=== PATIENT | female | born 1985 | race Asian ===

== ENCOUNTER 2020-01-14 17:36 | Emergency (ER) | payer BC, SELFPAY ==
--- NOTE | ~2020-01-14 | US_ITS ---
EXAMINATION: US OB <=14 wk fetus w TV EXAM DATE: 01/14/2020 18:36 INDICATION: , left-sided abdominal pain, cramping. 1st trimester. TECHNIQUE: Pelvic obstetrical transabdominal sonogram was performed by a technologist. There are mu ltiple grayscale and Doppler images available for interpretation. There are no earlier studies of th is gestation for comparison. FINDINGS: Uterus measures 8.7 x 4.6 x 3.7 cm. The endometrium is 17 mm in thickness, upper limits of normal, without gestation sac identified within the bladder. Small to moderate free pelvic fluid. Right adnexa: The ovary measures 3.0 x 2.5 x 1.7 cm and is morphologically normal. Ovarian vascular f low confirmed. Left adnexa: The ovary measures 3.7 x 3.9 x 3.9 cm, with mildly complex cystic lesion measuring 2.5 c m without surrounding hypervascularity, appearance most consistent with small hemorrhagic cyst. Ovari an vascular flow confirmed. Early intrauterine or recent spontaneous are common causes of elevated beta hCG in absence of intrauterine confirmation. Ultrasound can sometimes identify, but never exclud e an ectopic in the setting of positive beta hCG. Follow up as warranted clinically with s erial beta hCG levels or ultrasound. IMPRESSION: 1. Left ovarian small cystic lesion most likely hemorrhagic cyst. 2. No identified. Follow up as indicated clinically. Reviewed, dictated and finalized at location A.
[2020-01-14 17:39] VITALS: BP 123/60; PULSE 79; RESP 18; TEMP 36.4; O2SAT 99
[2020-01-14] MEDS: SODIUM CHLORIDE 0.9% IV 1,000 ML 999 ML IV CONT (18:00)
[2020-01-14] MEDS: MORPHINE SULFATE 4 MG/ML INJ IV PUSH (18:06)
--- NOTE | 2020-01-14 18:08 | ED.FEMALEGU ---
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 Patient is with an LMP of 11/26/2019. Patient reports sudden onset pain this evening. She has had no vaginal bleeding. G2, P1. Has not had a dating ultrasound. She sees Dr. Esparza. She has not been on any hormones to stimulate . Patient reports she tried to have a bowel movement and felt pressure in her rectum. Related Data Home Medications Medication Instructions Recorded Confirmed No Home Medications 01/14/20 01/14/20 Allergies Allergy/AdvReac Type Severity Reaction Status Date / Time No Known Allergies Allergy Verified 01/14/20 17:43 Review of Systems Review of Systems: All systems reviewed & are unremarkable except as noted in HPI and below Gastrointestinal: Gastrointestinal: Reports abdominal pain, Denies nausea and Denies vomiting Genitourinary: Genitourinary: Denies nocturia, Denies dysuria, Reports pelvic pain and Denies urinary incontinence PMFSH Past Medical History Medical History (Updated 01/14/20 @ 19:36 by Rome Arreguin MD) Healthy female adult Surgical History Surgical History (Updated 01/14/20 @ 18:10 by Rome Arreguin MD) H/O section Social History Social History (Updated 01/14/20 @ 18:10 by Rome Arreguin MD) Smoking status: Never smoker Gender identity (if verbalized by the patient): Female Exam Narrative: Exam Narrative: GENERAL: Well-appearing, well-nourished, and in no acute distress. HEAD: Normocephalic, atraumatic. ENT: Mucous membranes moist. CHEST: Clear to auscultation. No respiratory distress. HEART: Regular rate and rhythm. Normal peripheral pulses. ABDOMEN: Soft, mild left adnexal tenderness, nondistended. Pelvic: Normal external genitalia, scant discharge in the vaginal vault, cervix closed without bleeding. EXTREMITIES: Normal range of motion. No edema. SKIN: Warm, dry, no rash. NEURO: Alert and oriented x3. PSYCH: Normal mood and affect. Course Course Emergency Course: Discussed case with Dr. curry. Patient informed of results. Needs to contact clinic tomorrow for close follow-up and repeat beta-hCG testing. Vital Signs Vital signs: Vital Signs Temperature 97.5 F L 01/14/20 17:39 Pulse Rate 79 01/14/20 17:39 Respiratory Rate 18 01/14/20 17:39 Blood Pressure 123/60 01/14/20 17:39 Pulse Oximetry 99 01/14/20 17:39 Temperature 97.5 F L 01/14/20 18:36 Pulse Rate 79 01/14/20 17:39 Respiratory Rate 18 01/14/20 17:39 Blood Pressure 123/60 01/14/20 17:39 Pulse Oximetry 99 01/14/20 17:39 MDM - Female Genitourinary Lab Data Result diagrams: 01/14/20 18:00 Labs: Lab Results 01/14/20 01/14/20 01/14/20 Range/Units 18:00 18:00 18:35 Sodium 135 L (137-145) mmol/L Potassium 3.8 (3.4-5.0) mmol/L Chloride 101 (98-107) mmol/L Carbon Dioxide 24 (22-30) mmol/L BUN 11 (7-17) mg/dL Creatinine 0.60 L (0.7-1.0) mg/dL Estim Creat Clear Calc 110 ml/min Estimated GFR > 60 (59 - ) Glucose 94 (65-105) mg/dL Calcium 9.0 (8.4-10.2) mg/dL Beta HCG, Quant 902.97 mIU/ML Urine Color Straw (Yellow) Urine Appearance Clear (Clear) Urine pH 6.0 (5.0-9.0) Ur Specific [place] 1.014 (1.001-1.035) Urine Protein Negative (Negative) mg/dL Urine Glucose (UA) Negative (Negative) mg/dL Urine Ketones Negative (Negative) mg/dL Ur Blood (Man) Negative (Negative) Urine Nitrate Negative (Negative) Urine Bilirubin Negative (Negative) Urine Urobilinogen Negative (<2.0) mg/dL Leukocyte Esterase Rfl Negative (Negative) JOHN/UL Blood Type A Positive Antibody Screen Negative Screen Not Reportable Baby's B
[2020-01-14 18:18] LABS: Blood Urea Nitrogen 11 mg/dL (7-17); Carbon Dioxide 24 mmol/L (22-30); Chloride 101 mmol/L (98-107); Estimated CRCL calculation 110 ml/min; Estimated Glomerular Filt Rate > 60; Glucose 94 mg/dL (65-105); Potassium 3.8 mmol/L (3.4-5.0); Sodium 135 mmol/L (137-145)
[2020-01-14 18:36] VITALS: TEMP 36.4
[2020-01-14 18:49] LABS: Add Urine Microscopic? NO; Appearance Urine Clear (Clear); Bilirubin Urine Negative (Negative); Blood Urine Negative (Negative); Color Urine Straw (Yellow); Glucose Urine UA Negative (Negative); Ketones Urine Negative (Negative); Leukocyte Esterase Ur Negative LEU/UL (Negative); Nitrate Urine Negative (Negative); Protein Urine Negative (Negative); Specific Grav Ur 1.014 (1.001-1.035); Urobilinogen Urine Negative mg/dL (<2.0)
[2020-01-14 19:48] VITALS: BP 131/68; PULSE 77; RESP 16; TEMP 36.7; O2SAT 100
== END 2020-01-14 19:50 | disposition home or self-care (01) ==
PROVIDERS: Emergency Provider Emergency Medicine; PCP Family Medicine
DX: O34.81 Maternal care for other abnormalities of pelvic organs, first trimester (principal); N83.202 Unspecified ovarian cyst, left side; Z3A.01 Less than 8 weeks gestation of pregnancy
CPT/HCPCS: 36415; 76801; 76817; 80048; 81003; 84702; 85461; 96361; 96374; 99284; J2270; J7030

== ENCOUNTER 2020-01-15 10:17 | Outpatient (CLI) | payer BC, SELFPAY ==
[2020-01-15 10:47] LABS: Basophils Percent Auto 0.4 % (0.2-1.2); Eosinophils Absolute Auto 0.1 K/mm3 (0-0.3); Eosinophils Percent Auto 1.4 % (0-4.4); Hematocrit 31.1 % (37.0-47.0); Hemoglobin 10.3 g/dL (12.0-15.0); Immature Granulocyte Absolute 0.03 K/mm3 (0.00-0.031); Immature Granulocyte Percent A 0.3 % (0-0.5); Lymphocytes Absolute Auto 2.86 K/mm3 (0.9-3.2); Lymphocytes Percent Auto 30.2 % (18.3-44.2); Mean Corpuscular HGB Conc 33.1 g/dl (32-36); Mean Corpuscular Hemoglobin 27.4 pg (26-34); Mean Corpuscular Volume 82.7 fl (80-100); Mean Platelet Volume 10.7 fl (7.4-10.4); Monocytes Absolute Auto 0.8 K/mm3 (0.1-0.6); Monocytes Percent Auto 8.2 % (2.6-8.5); Neutrophils Absolute Auto 5.6 K/mm3 (1.3-6.7); Neutrophils Percent Auto 59.5 % (45.5-73.1); Platelet Count Result 250 k/mm3 (150-375); Red Blood Count 3.76 M/mm3 (4.2-5.4); Red Cell Distribution Width 19.9 % (11.5-14.5); White Blood Count 9.5 K/mm3 (4.5-10.0)
[2020-01-18 04:52] LABS: Progesterone 3.6 ng/mL (***)
== END 2020-01-15 10:18 | disposition home or self-care (01) ==
LOC: ANHLAB 10:20
PROVIDERS: PCP Family Medicine; Visit Provider Obstetrics & Gynecology
DX: O20.9 Hemorrhage in early pregnancy, unspecified (principal); Z3A.00 Weeks of gestation of pregnancy not specified
CPT/HCPCS: 36415; 84144; 84702; 85025

== ENCOUNTER 2020-01-17 09:17 | Outpatient (CLI) | payer BC, SELFPAY ==
[2020-01-17 10:15] LABS: Beta HCG Quantitative 845.87 mIU/ML
== END 2020-01-17 09:18 | disposition home or self-care (01) ==
LOC: ANHLAB 09:18
PROVIDERS: PCP Family Medicine; Visit Provider Obstetrics & Gynecology
DX: Z34.90 Encounter for supervision of normal pregnancy, unspecified, unspecified trimester (principal)
CPT/HCPCS: 36415; 84702

== ENCOUNTER 2020-01-17 14:00 | Day surgery (SDC) | payer BC, SELFPAY ==
[2020-01-17] VITALS (9 sets, daily range): BP systolic 94–113; BP diastolic 55–69; PULSE 74–96; RESP 13–16; TEMP 36.6–36.9; O2SAT 97–100; BMI 26.7
--- NOTE | 2020-01-17 13:52 | WPDANESEPPF ---
Anes - Initial Pre Proc Eval Procedure: Operation Date: 01/17/20 16:00 Proposed Procedures p Laparoscopic Left Salpingectomy - David Wadsworth MD Date/Time: 01/17/20 13:52 Surgeon: David Wadsworth MD Pre Op Diagnosis: Ectopic Patient Data Age: 34 Gender: F Height: Weight: Allergies Allergy/AdvReac Type Severity Reaction Status Date / Time No Known Allergies Allergy Verified 01/17/20 15:46 Home Medications Medication Instructions Recorded Confirmed Type omega-3 fatty acids 1,000 mg 1,000 mg PO DAILY 01/15/20 01/17/20 History capsule prenat.vits,lawson,gtz-fvth-rijmo 1 tablet PO DAILY 01/15/20 01/17/20 History hydrocodone-acetaminophen 1 tablet PO Q4H PRN #20 tablet 01/17/20 Rx Patient hx anesthesia problems: none Family hx anesthesia problems: none PMFSH Past Medical History Medical History (Updated 01/17/20 @ 15:20 by David Wadsworth MD) Encounter for assessment for suspected ectopic Healthy female adult Surgical History Surgical History H/O section Family History Family History Mother Diabetes mellitus Hypertension Father No problems noted. Social History Social History Smoking status: Former smoker Smoking end date: 08/15/09 Alcohol intake: never Substance use: never Gender identity (if verbalized by the patient): Female Anes - Eval Final PreProcedure Day of Procedure 01/17/20 13:52 Patient weight: overweight Heart: regular rate and rhythm Lungs: clear to auscultation and normal air movement Airway: Mallampati scale class II Neurological: alert and oriented Last oral intake: >/= 8 hours ASA classification: II Emergent: yes Anesthetic plan: proceed Anesthesia type and monitoring: general ETT Informed Consent: The patient's anesthetic plan and its attendant risks and benefits were discussed with the patient/family/POA. Questions were solicited and answers provided to the satisfaction of the patient/family/POA.
--- NOTE | 2020-01-17 15:08 | WPDANESEPPF ---
Anes - Initial Pre Proc Eval Procedure: Operation Date: 01/17/20 16:00 Proposed Procedures p Laparoscopic Left Salpingectomy - David Wadsworth MD Date/Time: 01/17/20 15:08 Surgeon: David Wadsworth MD Pre Op Diagnosis: Ectopic Patient Data Age: 34 Gender: F Height: Weight: Allergies Allergy/AdvReac Type Severity Reaction Status Date / Time No Known Allergies Allergy Verified 01/15/20 14:35 Home Medications Medication Instructions Recorded Confirmed Type multivitamin 1 tablet PO DAILY 01/15/20 History omega-3 fatty acids 1,000 mg 1,000 mg PO DAILY 01/15/20 History capsule prenat.vits,lawson,gqq-apzy-nhkun 1 tablet PO DAILY 01/15/20 History Patient hx anesthesia problems: none Family hx anesthesia problems: none PMFSH Past Medical History Medical History Healthy female adult Surgical History Surgical History H/O section Family History Family History Mother Diabetes mellitus Hypertension Father No problems noted. Social History Social History Smoking status: Former smoker Smoking end date: 08/15/09 Alcohol intake: never Substance use: never Gender identity (if verbalized by the patient): Female Anes - Eval Final PreProcedure Day of Procedure 01/17/20 15:08 Patient weight: overweight Heart: regular rate and rhythm Lungs: clear to auscultation Airway: Mallampati scale class II Neurological: alert and oriented Last oral intake: >/= 8 hours ASA classification: II Emergent: yes Anesthetic plan: proceed Anesthesia type and monitoring: general ETT and standard monitoring Informed Consent: The patient's anesthetic plan and its attendant risks and benefits were discussed with the patient/family/POA. Questions were solicited and answers provided to the satisfaction of the patient/family/POA.
[2020-01-17] MEDS: LACTATED RINGERS 1,000 ML 30 ML IV CONT ×2 (15:10→20:42)
--- NOTE | 2020-01-17 15:14 | PM.IMHP ---
H&P: HPI History of Present Illness Chief complaint: Ectopic Narrative: Meagan Genao is a 34 year old female at approximately 7 weeks by LMP. She presented to ED on 01/13 for left sided pelvic pain. HCG then was 900 and ultrasound showed possible left ovarian cyst. She started having small amount of vaginal bleeding the morning of 01/14. She was seen in office and her hcg level 12 hours after initial hcg was 531. She was informed of unknown location of and that the decreasing hcg may be consistent with spontaneous miscarriage but due to early gestation could not rule out ectopic. Her pelvic pain was improved in the office from when she went to ED. She had a follow up hcg done 48 hours later and the level increased to 845. She was instructed that with the plateauing hcg and the previous ultrasound finding and since her pain is more today that the concern is for an ectopic and laparoscopy for treatment is recommended. Review of Systems Review of Systems: All systems reviewed & are unremarkable except as noted in HPI and below Constitutional: Constitutional: Reports no additional constitutional complaints and Denies headache(s) Eyes: Eyes: Denies spots in vision ENT: Reports system reviewed and no additional complaints, except as documented and Denies headache(s) Cardiovascular: Cardiovascular: Denies chest pain and Denies dyspnea Respiratory: Respiratory: Denies dyspnea Gastrointestinal: Gastrointestinal: Reports no additional gastrointestinal complaints Musculoskeletal: Musculoskeletal: Reports no additional musculoskeletal complaints Neurologic: Denies headache(s) Psychiatric: Psychiatric: Reports no additional psychiatric complaints [facility] Past Medical History Medical History (Updated 01/17/20 @ 15:20 by David Wadsworth MD) Encounter for assessment for suspected ectopic Healthy female adult Surgical History Surgical History H/O section Family History Family History Mother Diabetes mellitus Hypertension Father No problems noted. Social History Social History Smoking status: Former smoker Smoking end date: 08/15/09 Alcohol intake: never Substance use: never Gender identity (if verbalized by the patient): Female Meds Home Medications and Allergies Home Medications Medication Instructions Recorded Confirmed Type omega-3 fatty acids 1,000 mg 1,000 mg PO DAILY 01/15/20 01/17/20 History capsule prenat.vits,lawson,zsn-pjdc-nrble 1 tablet PO DAILY 01/15/20 01/17/20 History Allergies Allergy/AdvReac Type Severity Reaction Status Date / Time No Known Allergies Allergy Verified 01/17/20 15:46 Exam Const: General: no acute distress Eyes: General: appearance normal, both eyes and all related structures Resp: Effort & Inspection: normal respiratory effort Cardio: Rate: regular rate GI: Other: mildly tender, no rebound, no guarding, nondistended Skin: General skin exam: no rashes or lesions noted Neuro: Cognition (Neuro): normal cognition Extrem: General: normal to inspection Psych: Mental Status: mental status grossly normal Assessment and Plan Assessment and plan (1) Encounter for assessment for suspected ectopic : Code(s): Z32.00 - Encounter for test, result unknown Status: Acute Assessment and Plan: Will perform laparascopy and removal of left ectopic by incision in fallopian tube or removal of fallopian tube. Informed of risk of removal of fallopian tube and or ovary. Risk of blood transfusion, laparotomy, hysterectomy. Questions answered. She agreed to procedure.
[2020-01-17] MEDS: SCOPOLAMINE 1.5 MG PATCH TRANSDERM (15:24)
[2020-01-17] MEDS: KETOROLAC 30 MG/ML VIAL (*BKC) IM (20:27)
--- NOTE | 2020-01-17 20:52 | PM.PROC ---
Procedure Note - Detailed Date of procedure: 01/17/20 Pre-op diagnosis: Ectopic Left ectopic Post-op diagnosis: same Procedure performed: Laparoscopic left partial salpingectomy with removal of ectopic Description of procedure: After informed consent was obtained patient was taken to the operating room. An exam under anesthesia was performed. She was placed in low lithotomy position and prepped and draped in sterile fashion. Attention was turned to the cervix a single-tooth tenaculum was placed on the cervix and acorn uterine manipulator was placed into the cervix canal. The bladder was drained of 75 cc of urine. Attention was then turned to the abdomen a vertical incision was made at the umbilicus with a scalpel. A Veress needle was inserted confirmation into the abdomen was obtained with free flow of fluid and normal peritoneal pressures. A pneumoperitoneum of 15 mm per mercury was obtained and a 5 mm port was inserted under laparoscopic visualization. Patient was placed in Trendelenburg position. An incision was made on the left side and a 5 mm port was inserted under laparoscopic visualization the pelvis was visualized there was noted to be a hemoperitoneum in the pelvis this was suction. Attention was turned to the right side of the abdomen and a incision was made and a 10 mm port was inserted under laparoscopic visualization. The left adnexa was visualized the left fallopian tube was mildly adhesed to the left sidewall. The mild adhesions were bluntly dissected off the sidewall and this did mobilize the distal fallopian tube and there was noted to be the ectopic in the distal fallopian tube near the fimbria. There was mild oozing at the fimbria. The LigaSure was then used and a left partial salpingectomy was performed removing the fallopian tube from the middle to the distal end. The fallopian tube and ectopic were placed in the Endo-Catch bag and the Endo-Catch bag was removed through the incision site. The port was placed back into the abdomen. The pelvis was irrigated the left ovary was visualized and noted to be normal. Small amount of clots that were in the abdomen were removed. Hemostasis was noted at the side of the partial salpingectomy. The patient was taken out of Trendelenburg position. The ports were removed. Prior to removing the ports the pneumoperitoneum was released. The fascia was closed with 0 Vicryl on the left side port. Skin incisions were closed with 4 O Vicryl and 10 cc of 1% lidocaine total was injected at the incision sites. Hemostasis was noted. Sponge count was correct. The the uterine manipulator was removed from the cervix canal. The patient was extubated in the operating room and taken to recovery in stable condition. Anesthesia: GETA Surgeon: David Wadsworth MD Estimated blood loss (mL): 50 Urine output (mL): 75 Drains: No Packing: No Pathology: yes Complications: No immediate complications Condition: stable Disposition: PACU Findings: Approximately 50 cc of hemoperitoneum, left distal ectopic near fimbria of fallopian tube, right fallopian tube and ovary normal, left ovary normal. Left fallopian tube mildly adhesed to side wall.
[2020-01-17] MEDS: ONDANSETRON INJ 4 MG/2 ML VIAL IV PUSH ×2 (21:03→21:40)
--- NOTE | 2020-01-17 21:11 | SUR.PHASEI ---
2100; DR TROY AT BEDSIDE SPEAKING TO PT
--- NOTE | 2020-01-17 21:40 | SUR.PHASEI ---
2139; PT MORE AWAKE. DENIES PAIN. STATES RETURN OF SLIGHT NAUSEA. ZOFRAN REPEATED PER ORDERS.
--- NOTE | 2020-01-17 21:43 | SUR.PHASEI ---
2143; PT ASKING WHEN SHE CAN GO HOME
--- NOTE | 2020-01-17 22:46 | SUR.PHASEII ---
9018; SPOUSE BROUGHT INTO [facility] FOR DISCHARGE INSTRUCTIONS. PT STATES SHE WOULD LIKE TO TO GO. DENIES NAUSEA. STATES PAIN MODERATE AND TOLERABLE.
== END 2020-01-17 23:01 | disposition home or self-care (01) ==
PROVIDERS: PCP Family Medicine; Visit Provider Obstetrics & Gynecology
PROC: (CPT 49320; principal; 2020-01-17 16:00)
DX: O00.102 Left tubal pregnancy without intrauterine pregnancy (principal); Z87.891 Personal history of nicotine dependence
CPT/HCPCS: 59151; 88305; A9270; J0131; J0330; J1100; J1885; J2250; J2405; J2704; J3010; J7120

== ENCOUNTER 2020-01-24 14:04 | Outpatient (CLI) | payer BC, SELFPAY ==
[2020-01-24 14:35] LABS: Hematocrit 33.9 % (37.0-47.0); Hemoglobin 11.1 g/dL (12.0-15.0); Mean Corpuscular HGB Conc 32.7 g/dl (32-36); Mean Corpuscular Hemoglobin 27.3 pg (26-34); Mean Corpuscular Volume 83.5 fl (80-100); Platelet Count Result 339 k/mm3 (150-375); Red Blood Count 4.06 M/mm3 (4.2-5.4); Red Cell Distribution Width 18.8 % (11.5-14.5)
[2020-01-24 15:05] LABS: Beta HCG Quantitative 18.57 mIU/ML
== END 2020-01-24 14:05 | disposition home or self-care (01) ==
LOC: ANHLAB 14:05
PROVIDERS: PCP Family Medicine; Visit Provider Obstetrics & Gynecology
DX: Z32.00 Encounter for pregnancy test, result unknown (principal)
CPT/HCPCS: 36415; 84702; 85027

== ENCOUNTER 2020-05-01 14:30 | Emergency (ER) | payer BC, SELFPAY ==
[2020-05-01 14:37] VITALS: BP 109/67; PULSE 79; RESP 12; TEMP 36.4; O2SAT 99
--- NOTE | 2020-05-01 14:40 | ED.URI ---
HPI - URI/Sore Throat General Chief Complaint: Upper Respiratory Infection Stated Complaint: nasal congestion/ear pain/sinus pressure Time Seen by Provider: 05/01/20 14:40 Source: patient and RN notes reviewed History of Present Illness HPI Narrative: Patient is a 34-year-old female who presents the urgent care with complaints of nasal congestion, sinus pressure, bilateral otalgia and mild nonproductive cough. Patient states she has been using sinus Tylenol and cold as well as a Simla pot and steam at night. Patient states symptoms started approximately 3 weeks ago and her PCP would not see her in the office due to cold-like symptoms . Patient denies of any known exposure to COVID. Denies of any recent fever, chills, nausea, vomiting, shortness of breath. No other acute complaints. No acute distress noted. Patient read the plan of care. Some parts of this dictation were generated by voice recognition software and may contain typographical and/or grammatical inaccuracies. Related Data Allergies Allergy/AdvReac Type Severity Reaction Status Date / Time No Known Allergies Allergy Verified 05/01/20 14:40 Review of Systems Review of Systems: Narrative: CONSTITUTIONAL: Denies fever, chills, or sweats. EYES: Denies visual changes, redness, or discharge. ENT: Reports of nasal congestion, bilateral otalgia, postnasal drainage, sinus pressure CARDIOVASCULAR: Denies chest pain, palpitations, or edema. RESPIRATORY: Reports of nonproductive cough without dyspnea GASTROINTESTINAL: Denies abdominal pain, nausea, vomiting, or diarrhea. GENITOURINARY: Denies dysuria or hematuria. SKIN: Denies rash or itching. MUSCULOSKELETAL: Denies back pain, joint pain, or myalgia. NEUROLOGIC: Denies headache, numbness, or weakness. All other systems reviewed are negative, except as documented in HPI. PMFSH Social History Social History Smoking status: Former smoker Smoking end date: 08/15/09 Alcohol intake: never Substance use: never Gender identity (if verbalized by the patient): Female Comments At the time of my signature, I reviewed and agree with the nursing past medical, surgical, social, and family history. There is no relevant family history pertinent to the patient complaint. Exam Narrative: Exam Narrative: GENERAL: This is a well-nourished, well-developed patient, in no apparent distress. HEAD: normocephalic, atraumatic. Mild frontal sinus tenderness EYES: PERRL. Sclera clear/white. Vision is grossly intact. EARS: External ears normal, auditory canals clear and without drainage, moderately bulging and erythemic left TM with moderate fluid, right TM normal without perforation. Hearing grossly intact. NOSE: External nose normal with no obvious nasal discharge, bilateral erythemic nares with clear rhinorrhea THROAT: Mucous membranes moist, posterior pharynx clear. Mild postnasal drainage NECK: Neck supple CARDIOVASCULAR: Regular rate and rhythm without murmurs, gallops, or rubs. RESPIRATORY: Mild expiratory wheezes to left and right upper lobes with slight crackles throughout SKIN: warm, intact with no suspicious lesions or rash, good texture and turgor. NEURO: awake, alert, and oriented to person, place and time. There were no obvious focal neurologic abnormalities. EXTREMITIES: No clubbing, cyanosis, or edema. Course Vital Signs Vital signs: Vital Signs Temperature 97.6 F 05/01/20 14:37 Pulse Rate 79 05/01/20 14:37 Respiratory Rate 12 05/01/20 14:37 Blood Pressure 109/67 05/01/20 14:37 Pulse Oximetry 99 05/01/20 14:37 Temperature 97.6 F 05/01/20 14:37 Pulse Rate 79 05/01/20 14:37 Respiratory Rate 12 05/01/20 14:37 Blood Pressure 109/67 05/01/20 14:37 Pulse Oximetry 99 05/01/20 14:37 Reviewed MDM - URI/Sore Throat MDM Narrative Medical decision making narrative: Advised the patient to complete steroid regimen as prescribed. Make sure
== END 2020-05-01 15:05 | disposition home or self-care (01) ==
PROVIDERS: Emergency Provider Nurse Practitioner Family; PCP Family Medicine
DX: J32.9 Chronic sinusitis, unspecified (principal); H66.92 Otitis media, unspecified, left ear; Z87.891 Personal history of nicotine dependence
CPT/HCPCS: 99213; G0463

== ENCOUNTER 2020-08-16 08:31 | Outpatient (RCR) | payer BC, SELFPAY ==
[2020-08-20 12:58] LABS: Progesterone 15.9 ng/mL (***)
== END 2020-11-11 23:59 | disposition home or self-care (01) ==
LOC: ANHLAB 08:31
PROVIDERS: PCP Family Medicine; Visit Provider Obstetrics & Gynecology
DX: N91.2 Amenorrhea, unspecified (principal)
CPT/HCPCS: 36415; 84144; 84702

== ENCOUNTER 2020-08-19 14:59 | Outpatient (CLI) | payer BC, SELFPAY ==
--- NOTE | ~2020-08-19 | US_ITS ---
EXAMINATION: US OB <=14 wk fetus w TV EXAM DATE: 08/19/2020 16:04 INDICATION: N91.2 - Amenorrhea, unspecified. 1st trimester. TECHNIQUE: Pelvic obstetrical transabdominal sonogram was performed by a technologist. There are mu ltiple grayscale and Doppler images available for interpretation. There are no earlier studies of th is gestation for comparison. FINDINGS: Uterus measures 9.0 x 5.2 x 6.0 cm. There is intrauterine gestation sac. The mean sac bel meter of 1.6 cm corresponds to estimated gestational age by ultrasound of 6 weeks 2 days. There is n o yolk sac or pole identified at this time. There is a subchorionic hemorrhage measuring 1.2 x 0.6 x 0.9 cm. Complex cystic left ovarian region measuring 1.8 cm, most likely the corpus luteal cys t. The right ovary is morphologically normal. IMPRESSION: Early intrauterine gestation sac with small subchorionic hemorrhage. No pole or yol k sac identified, cannot confirm viability. Consider 2 week follow-up ultrasound. Reviewed, dictated and finalized at location G. ON PICKER IMPRESSION: Early intrauterine gestation sac with small subchorionic hemorrhage . No pole or yolk sac identified, cannot confirm viability. Consider 2 we ek follow-up ultrasound.
== END 2020-08-19 15:00 | disposition home or self-care (01) ==
PROVIDERS: PCP Family Medicine; Visit Provider Obstetrics & Gynecology
DX: N91.2 Amenorrhea, unspecified (principal); Z3A.00 Weeks of gestation of pregnancy not specified
CPT/HCPCS: 76801; 76817

== ENCOUNTER 2020-09-10 10:41 | Outpatient (CLI) | payer BC, SELFPAY ==
--- NOTE | ~2020-09-10 | US_ITS ---
EXAMINATION: US OB <=14 wk fetus w TV DATE: 09/10/2020 11:21 INDICATION: Encounter for supervision of normal . TECHNIQUE: Real-time transabdominal and transvaginal pelvic ultrasound was performed. COMPARISON: Ultrasound 08/19/2020 FINDINGS: TRANSABDOMINAL ULTRASOUND: The uterus measures 10.9 x 6.4 x 7.7 cm. TRANSVAGINAL ULTRASOUND: There is an intrauterine gestational sac. A yolk sac is identified. The fet al crown rump length measures 1.5, which correlates with an estimated gestational age of 7 weeks and 6 day(s) (+/-) 5 day(s). heart motion is not identified by cine imaging or color Doppler. There is a 3.0 x 1.3 x 0.5 cm subchorionic hematoma. The right ovary measures 2.7 x 1.9 x 1.7 cm. The left ovary measures 2.4 x 1.8 x 2.3 cm. There is no free fluid in the pelvis. IMPRESSION: 1. demise. Reviewed, dictated and finalized at location A. ERNMAKER WOOD IMPRESSION: 1. demise.
== END 2020-09-10 10:42 | disposition home or self-care (01) ==
LOC: ANHIMG 10:43
PROVIDERS: PCP Family Medicine; Visit Provider Obstetrics & Gynecology
DX: O02.1 Missed abortion (principal); Z3A.00 Weeks of gestation of pregnancy not specified
CPT/HCPCS: 76801; 76817

== ENCOUNTER → 2020-09-25 06:52 | Outpatient (CLI) | payer BC, SELFPAY ==
[2020-09-25 20:53] LABS: SARS-CoV-2 RNA PCR Negative
== END ==
PROVIDERS: PCP Family Medicine; Visit Provider Obstetrics & Gynecology
DX: Z20.822 Contact with and (suspected) exposure to COVID-19 (principal); R50.9 Fever, unspecified
CPT/HCPCS: C9803; U0003; U0005

== ENCOUNTER 2020-09-30 12:54 | Outpatient (CLI) | payer BC, SELFPAY ==
--- NOTE | ~2020-09-30 | US_ITS ---
EXAMINATION: US pelvic complete w TV DATE: 09/30/2020 13:50 INDICATION: Failed , concern for retained products of conception. TECHNIQUE: Multiple transabdominal and endovaginal sonographic images of the pelvis were obtained. COMPARISON: 09/10/2020 FINDINGS: The uterus measures 8.4 x 4.0 x 4.6 cm. No retained products of conception are identified. The endometrial complex measures 5 mm. The right ovary measures 2.7 x 1.9 x 1.7 cm. The left ovary me asures 2.4 x 1.8 x 2.3 cm. There is normal vascular flow in the ovaries. There is no free fluid in th e pelvis. IMPRESSION: 1. No retained products of conception identified. Reviewed, dictated and finalized at location A. ATRICIAN
== END 2020-09-30 12:55 | disposition home or self-care (01) ==
PROVIDERS: PCP Family Medicine; Visit Provider Obstetrics & Gynecology
DX: O03.9 Complete or unspecified spontaneous abortion without complication (principal)
CPT/HCPCS: 76830; 76856

== ENCOUNTER 2021-02-07 11:23 | Outpatient (CLI) | payer BC, SELFPAY ==
--- NOTE | ~2021-02-07 | XR_ITS ---
EXAMINATION: SACRUM/COCCYX DATE: 02/07/2021 12:08 INDICATION: Coccyx pain. TECHNIQUE: Three views sacrum/coccyx FINDINGS: No prior studies for comparison. There is no displaced fracture of the sacrum. The coccyx demonstrates overall normal morphology with out acute angulation. IMPRESSION: 1. No acute displaced osseous abnormality of the sacrum. Suspicion for occult or nondisplaced sacral fracture can either be evaluated with CT or MRI. 2. Grossly normal morphology to the coccyx without acute angulation. However, due to the wide range of normal variation of the coccyx, acute injury would be best evaluated by clinical examination and patient's symptoms. Reviewed, dictated and finalized at location A.
== END 2021-02-07 11:24 | disposition home or self-care (01) ==
LOC: ANHIMG 11:27
PROVIDERS: PCP Family Medicine; Visit Provider Physician Assistant
DX: M53.3 Sacrococcygeal disorders, not elsewhere classified (principal)
CPT/HCPCS: 72220

== ENCOUNTER 2025-02-28 14:49 | Outpatient (CLI) | payer BC, SELFPAY ==
--- NOTE | ~2025-02-28 | US_ITS ---
EXAMINATION: US thyroid DATE: 02/28/2025 15:01 INDICATION: Raven's thyroiditis TECHNIQUE: Multiple ultrasound images of the thyroid were obtained. COMPARISON: None. FINDINGS: The right thyroid lobe measures 5.2 x 1.6 x 1.7 cm. The left thyroid lobe measures 3.9 x 1.5 x 1.6 c m. The isthmus measures 0.5 cm. There is heterogeneous echogenicity throughout the thyroid gland, wh ich decreases sensitivity for nodules detection. No discrete nodules identified. Increased vascular f low is present. IMPRESSION: Heterogeneous, hypervascular thyroid gland as can be seen with both Graves' disease and Raven's t hyroiditis. Reviewed, dictated and finalized at location K. IMPRESSION: Heterogeneous, hypervascular thyroid gland as can be seen with both Graves' dis ease and Raven's thyroiditis.
== END 2025-02-28 14:50 | disposition home or self-care (01) ==
LOC: GOSHIMG 14:50
PROVIDERS: PCP Emergency Medicine; Visit Provider Emergency Medicine
DX: E06.3 Autoimmune thyroiditis (principal)
CPT/HCPCS: 76536

== ENCOUNTER 2025-03-04 14:51 | Outpatient (CLI) | payer BC, SELFPAY ==
--- NOTE | ~2025-03-04 | MM_ITS ---
EXAMINATION: MM screening [facility] BI w jeff INDICATION: Asymptomatic, referred for screening mammogram COMPARISON: Baseline TECHNIQUE: Digital Breast Tomosynthesis CC, MLO views of Both breasts were obtained with computer-ai ded detection to assist in interpretation of the study. FINDINGS: The breasts are extremely dense, which lowers the sensitivity of mammography. There are regional punctate microcalcifications that spans 8 cm in the outer central left breast lulu tered at 4 cm posterior to the nipple. Elsewhere, there are no mammographic features of malignancy. IMPRESSION: 1. Left breast region of calcifications. 2. No evidence of malignancy in the Right breast. RECOMMENDATION: Left breast Diagnostic mammogram with true lateral, and appropriate magnification views. BI-RADS Category 0: Incomplete: Needs additional imaging evaluation. Reviewed, dictated and finalized at location B. IMPRESSION: 1. Left breast region of calcifications. 2. No evidence of malignancy in the Right breast. RECOMMENDATION: Left breast Diagnostic mammogram with true lateral, and appropriate magnificati on views. BI-RADS Category 0: Incomplete: Needs additional imaging evaluation.
--- OUTSIDE RECORDS SUMMARY | 2025-03-04 14:54 | XMS_ITS | Clinical Summary ---
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 Gender Identity Not on file Sexual Orientation Not on file Plan of Treatment Upcoming Encounters Date Type Department Care Team (Late st Contact Info) Description 03/15/2025 10:00 AM CDT [facility] [address] [phone] Urbano Mccormick MD [facility] [address] [address] Health Maintenance Due Date Last Done Comments Hepatitis C Virus (HCV) Screening 1984 Human Papillomavirus (HPV) Immunization (1 - 3-dose series) 1999 Hepatitis B Immunization (1 of 3 - 19+ 3-dose series) 2003 Pap Smear 2005 Cervical Cancer Screening (CCS) 2014 HPV/Cotest 2014 SARS-COV-2 Immunization ( season) 2024 09/19/2022, 07/31/2021, 12/10/2020, Additional history exists Influenza Immunization (#1) 2025 07/31/2021, 1 Respiratory Syncytial Virus (RSV) Immunization (Adult) (1 - 1-dose 75+ series) 2059 TdaP Immunization Completed 09/04/2016 Meningococcal Immunization (ACWY) Aged Out No longer eligible based on patient's age to complete this topic Pneumococcal Immunization Combined Aged Out No longer eligible based on patient's age to complete this topic Rotavirus Immunization Aged Out No lo nger eligible based on patient's age to complete this topic Insurance [facility] Care Teams Health Program Manager Relationship Specialty Start Date End Date Shawn Swift [address] [place] [address] PCP - General Family Medicine 02/28/25 Urbano Mccormick MD [address] [place] [phone] Consulting Physician Oncology 02/28/25
--- OUTSIDE RECORDS SUMMARY | 2025-03-04 14:54 | XMS_ITS | Clinical Summary ---
Author Organization [facility] Address [address] [place] [id number] Care Team Providers Care Web Design Intern Name Role Phone Unavailable Primary Care Provider Unavailabl e Social History Tobacco Use Types Packs/Day Years Used Date Smoking Tobacco: Never Assessed Comments Unknown Sex and Gender Information Value Date Recorded Sex Assigned at Not on file Legal Sex Female 9:07 PM CDT Gender Identity Not on file Sexual Orientation Not on file Last Filed Vital Signs Vital Sign Reading Time Taken Comments Blood Pressure 116/68 01/24/2014 2:37 PM CDT Pulse 89 01/08/2014 2:34 PM CDT Temperature - - Respiratory Rate - - Oxygen Saturation - - Inhaled Oxygen Concentration - - Weight 62.1 kg (137 lb) 01/24/2014 2:37 PM CDT Height 160 cm (5' 3) 01/08/2014 2:34 PM CDT Body Mass Index 24.27 01/08/2014 2:34 PM CDT Plan of Treatment Health Maintenance Due Date Last Done Comments Cervical Cancer Screening Pa p Smear (Age 30 to 64) Every 3 Years 1984 Annual Physical 1987 Hepatitis C 2002 DTaP, Tdap and Td Vaccines ( 1 - Tdap) 2003 Hepatitis B Vaccines (1 of 3 - 19+ 3-dose series) 2003 HPV Vaccines (1 - 3-dose SCD M series) 2011 Cervical Cancer Screening Pa p with HPV Testing (Age 30 to 64) Every 5 Years 2014 Cervical Cancer Screening with HPV 2014 COVID-19 Vaccine (2023-2 5 season) 2024 Mammogram Screening 2024 Meningococcal B Vaccine Aged Out No l onger eligible based on patient's age to complete this topic Meningococcal Vaccine Aged Out No josé miguel solange eligible based on patient's age to complete this topic Pneumococcal Vaccine: Pediat rics (0 to 5 Years) and At-Risk Patients (6 to 49 Years) Aged Out No longer eligible b ased on patient's age to complete this topic RSV Immunizations Under 20 Months Aged Out No longer eligible based on patient's age to complete this topic
--- OUTSIDE RECORDS SUMMARY | 2025-03-04 14:54 | XMS_ITS | Clinical Summary ---
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
--- OUTSIDE RECORDS SUMMARY | 2025-03-04 14:54 | XMS_ITS | Referral Summary ---
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
--- OUTSIDE RECORDS SUMMARY | 2025-03-04 14:54 | XMS_ITS | Clinical Summary ---
Author Organization [facility] Address [address] [place] [address] Care Team Providers Care Board Of Directors Name Role Phone Nolan Blackmon MD Primary Care Provider [phone] Source Comments [facility],non-owned Affiliates and Associated Physician Practices is amultiple site organization consisting of ambulatory clinics and hospital sitesin [place], [place], [place] and [place]. This disclosure is being madepursuant to the Care Everywhere program and may not contain all information available regarding this patient. 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 Gender Identity Not on file Sexual Orientation Not on file Plan of Treatment Health Maintenance Due Date Last Done Comments LIPID TESTING 1984 MAMMOGRAM 1984 HIV SCREENING 1999 HEPATITIS C SCREENING 08/13/2002 DTAP/TDAP/TD VACCINES (1 - Tdap) 2003 HEPATITIS B VACCINE (1 of 3 - 19+ 3-dose series) 2003 HPV VACCINE (1 - 3-dose SCDM series) 2011 COVID-19 VACCINE (2023-2 5 season) 2024 DEPRESSION SCREENING 08/15/2024 INFLUENZA VACCINE (#1) 2025 ZOSTER VACCINE (1 of 2) 2034 HIB VACCINE Aged Out No longer eligi ble based on patient's age to complete this topic MENINGOCOCCAL (Group B) VACC INE SHARED DECISION-MAKING Aged Out No longer eligibl e based on patient's age to complete this topic MENINGOCOCCAL GROUPS A/C/Y/W VACCINE Aged Out No longer eligible b ased on patient's age to complete this topic PNEUMOCOCCAL VACCINE Aged Out No long er eligible based on patient's age to complete this topic Insurance ANTHEM ANTHEM ANTHEM ANTHEM Care Teams Board Of Directors Relationship Specialty Start Date End Date Nolan Blackmon MD PCP - General Family Medicine 06/22/16
== END 2025-03-04 14:52 | disposition home or self-care (01) ==
LOC: CHSIMG 14:52
PROVIDERS: PCP Emergency Medicine; Visit Provider Emergency Medicine
DX: Z12.31 Encounter for screening mammogram for malignant neoplasm of breast (principal)
CPT/HCPCS: 77063; 77067

== ENCOUNTER 2025-05-17 09:00 | Outpatient (CLI) | payer BC, SELFPAY ==
--- NOTE | ~2025-05-17 | MM_ITS ---
EXAMINATION: MM diagnostic gerardo LT w jeff HISTORY: Follow-up left breast calcifications TECHNIQUE: Additional 3-D tomosynthesis images of the left breast were performed and synthetic 2-D images were generated. CAD analysis was submitted and interpreted. COMPARISON: 03/04/2025 BREAST PARENCHYMAL COMPOSITION: Dense: The breasts are heterogeneously dense, which may obscure small masses FINDINGS: There are scattered relatively monomorphic punctate calcifications diffusely spread in the left breast with similar calcifications on the right, although fewer in number, likely benign. There are no suspicious masses or architectural distortion. IMPRESSION: 1. Probable benign left breast calcifications. 2. Recommend 6 month follow-up diagnostic left mammogram. BI-RADS category 3, probably benign findings. Reviewed, dictated and finalized at location C.
--- OUTSIDE RECORDS SUMMARY | 2025-05-17 09:11 | XMS_ITS | Clinical Summary ---
Author Organization [facility] Address [address] [place] [address] Care Team Providers Care Administrative Nursing Supervisor Name Role Phone Nolan Blackmon MD Primary Care Provider [phone] Source Comments [facility],non-owned Affiliates and Associated Physician Practices is amultiple site organization consisting of ambulatory clinics and hospital sitesin [place], [place], [place] and [place]. This disclosure is being madepursuant to the Care Everywhere program and may not contain all information available regarding this patient. 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 Gender Identity Not on file Sexual Orientation Not on file Plan of Treatment Health Maintenance Due Date Last Done Comments LIPID TESTING 1984 MAMMOGRAM 1984 HIV SCREENING 1999 HEPATITIS C SCREENING 08/13/2002 DTAP/TDAP/TD VACCINES (1 - Tdap) 2003 HEPATITIS B VACCINE (1 of 3 - 19+ 3-dose series) 2003 HPV VACCINE (1 - 3-dose SCDM series) 2011 DEPRESSION SCREENING 08/15/2024 COVID-19 VACCINE (1 - 2023-2 5 season) 2025 INFLUENZA VACCINE (#1) 2025 ZOSTER VACCINE (1 [...] Insurance ANTHEM ANTHEM ANTHEM ANTHEM Care Teams Administrative Nursing Supervisor Relationship Specialty Start Date End Date Nolan Blackmon MD PCP - General Family Medicine 06/22/16
--- OUTSIDE RECORDS SUMMARY | 2025-05-17 09:11 | XMS_ITS | Clinical Summary ---
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
--- OUTSIDE RECORDS SUMMARY | 2025-05-17 09:11 | XMS_ITS | Clinical Summary ---
Author Organization [facility] Address [address] [place] [address] Phone Care Team Providers Care Bolt Labeler Name Role Phone Shawn Swift Primary Care Provider [phone] Urbano Mccormick MD Unavailable [phone] Allergies No known active allergies Medications Synthroid 50 MCG Tablet Take 50 mcg by mouth daily. 02/26/2025 Active Active Problems Problem Noted Date Diagnosed Date Iron deficiency anemia refractory to iron therap y 03/15/2025 Encounters Date Type Department Care Team Description 03/21/2025 8:00 AM CDT Clinical Support [facility] [address] [phone] Nurse, Stephanie Pfeiffer Iron deficiency anemia refractory to iron therapy (Primary Dx) 03/21/2025 Travel 03/15/2025 10:00 AM CDT Office Visit [facility] [address] [phone] Urbano Mccormick MD Iron deficiency anemia refractory to iron therapy (Primary Dx) 03/15/2025 Telephone [facility] [address] [phone] Urbano Mccormick MD 03/15/2025 Travel from Last 3 Months Family History Medical History Relation Name Comments Prostate Cancer Father Diabetes Mother Hypertension Mother Relation Name Status Comments Brother 1 Alive Brother 2 Alive Child Alive Father Mother Alive Social History Tobacco Use Types Packs/Day Years Used Date Smoking Tobacco: Never Smokeless Tobacco: Never Alcohol Use Standard Drinks/Week Comments Not Currently 0 (1 standard drink = 0.6 oz pur e alcohol) Comments Unknown Sex and Gender Information Value Date Recorded Sex Assigned at Not on file Legal Sex Female 12:15 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 DIRECTOR Gender Identity Not on file Sexual Orientation Not on file Last Filed Vital Signs Vital Sign Reading Time Taken Comments Blood Pressure 111/76 03/21/2025 8:15 AM CDT Pulse 73 03/21/2025 8:15 AM CDT Temperature 36.8 C (98.2 F) 03/21/2025 8:15 AM CDT Respiratory Rate 18 03/21/2025 8:15 AM CDT Oxygen Saturation 96% 03/21/2025 8:15 AM CDT Inhaled Oxygen Concentration - - Weight 80.9 kg (178 lb 6.4 oz) 03/15/2025 9:40 A M CDT Height 162.6 cm (5' 4) 03/15/2025 9:40 AM CDT Body Mass Index 30.62 03/15/2025 9:40 AM CDT Plan of Treatment Health Maintenance Due Date Last Done Comments Hepatitis C Virus (HCV) Screening 1984 Mammogram 1984 Hepatitis B Immunization (1 of 3 - 19+ 3-dose series) 2003 Pap Smear 2005 Human Papillomavirus (HPV) Immunization (1 - 3-dose SCDM series) 2011 Cervical Cancer Screening (CCS) 2014 HPV/Cotest 2014 Discussion re Starting/Frequency of Mammograms 2024 Influenza Immunization (#1) 2025 07/31/2021, 1 SARS-COV-2 Immunization ( season) 2025 09/19/2022, 07/31/2021, 12/10/2020, Additional history exists Respiratory Syncytial Virus (RSV) Immunization (Adult) (1 [...] patient's age to complete this topic Insurance [facility] Care Teams Bolt Labeler Relationship Specialty Start Date End Date Shawn Swift [address] [place] [address] PCP - General Family Medicine 02/28/25 Urbano Mccormick MD [address] [place] [phone] Consulting Physician Oncology 02/28/25
== END 2025-05-17 09:01 | disposition home or self-care (01) ==
LOC: CHSIMG 09:02
PROVIDERS: PCP Emergency Medicine; Visit Provider Emergency Medicine
DX: R92.1 Mammographic calcification found on diagnostic imaging of breast (principal)
CPT/HCPCS: 77061; 77065; G0279